=== PATIENT | female | born 1965 | race Caucasian/White ===

== ENCOUNTER 2019-02-01 15:19 | Emergency (ER) | payer MEDICARE, OTHER ==
[~2019-02-01] VITALS: Ht 180.3 cm; Wt 77.1 kg
[2019-02-01] MEDS ORDERED: LEVSOD112 PO (16:15)
[2019-02-01] MEDS ORDERED: ARIP10 PO (16:15)
[2019-02-01] MEDS ORDERED: Mobic7.5 MG PO (16:16)
[2019-02-01] MEDS ORDERED: AMIT50 PO (16:16)
[2019-02-01] MEDS ORDERED: LAMO25 PO (16:16)
[2019-02-01] MEDS ORDERED: Ultram50 MG PO (17:12)
== END 2019-02-01 17:27 | disposition home or self-care (01) ==
LOC: ER 15:19
DX: M25.562 Pain in left knee (principal); M25.561 Pain in right knee; Z88.0 Allergy status to penicillin; Z79.899 Other long term (current) drug therapy
CPT/HCPCS: 73562-LT; 73562-RT; 99283-25